=== PATIENT | male | born 1970 | race Caucasian/White ===

== ENCOUNTER 2017-06-24 10:36 | Day surgery (SDC) | payer BC ==
[2017-06-24 11:19] LABS: ADD MAN DIFF? NO
[2017-06-24 11:21] LABS: WHITE BLOOD COUNT 4.2 10^3/ul (4.8-10.8)
[2017-06-24 11:21] LABS: BASOPHILS % 0.7 % (0.0-2.0); EOSINOPHILS # 0.1 10^3/ul (0.0-0.5); EOSINOPHILS % 1.7 % (0.0-7.0); HEMATOCRIT 48.2 % (42.0-52.0); LYMPHOCYTES # 1.8 10^3/ul (0.8-2.9); LYMPHOCYTES % 42.8 % (15.0-51.0); MEAN CORPUSCULAR HGB CONC 35.3 g/dl (32.0-37.0); MEAN CORPUSCULAR VOLUME 85.2 fl (82.0-101.0); MEAN PLATELET VOLUME 9.8 fl (7.4-10.4); MONOCYTE # 0.4 10^3/ul (0.3-0.9); MONOCYTES % 8.7 % (0.0-11.0); NEUTROPHIL # 1.9 10^3/ul (1.6-7.5); NEUTROPHILS % 45.9 % (39.0-77.0); PLATELET COUNT 251 10^3/UL (140-415); RED BLOOD COUNT 5.66 10^6/ul (4.70-6.10); RED CELL DISTRIBUTION WIDTH 12.2 % (11.5-14.5)
[2017-06-24 11:26] LABS: HOLD TRANSMISSIONS 1
[2017-06-24 11:39] LABS: ALANINE AMINOTRANSFERASE 119 IU/L (13-69); ALBUMIN 4.6 g/dl (3.3-4.9); ALBUMIN/GLOBULIN RATIO 1.43; ALKALINE PHOSPHATASE 74 IU/L (42-121); ANION GAP 18 (8-16); ASPARTATE AMINO TRANSFERASE 102 IU/L (15-46); BILIRUBIN,INDIRECT 0.4 mg/dl (0-1.1); BILIRUBIN,TOTAL 0.4 mg/dl (0.2-1.3); CARBON DIOXIDE 25 mmol/L (21-31); CHLORIDE 106 mmol/L (97-110); GLUCOSE 96 mg/dl (70-220); TOTAL PROTEIN 7.8 g/dl (6.1-8.1)
[2017-06-24 11:41] LABS: BLOOD UREA NITROGEN 10 mg/dl (7-20); POTASSIUM 3.9 mmol/L (3.5-5.1); SODIUM 145 mmol/L (135-144)
[2017-06-24 11:42] LABS: CALCIUM 9.2 mg/dl (8.4-10.2); CREATININE 0.94 mg/dl (0.61-1.24)
[2017-06-24 11:44] LABS: INR 0.94; PROTIME 12.7 Sec (11.9-14.9)
[2017-06-24 11:45] LABS: PARTIAL THROMBOPLASTIN TIME 30.5 Sec (25.0-35.0)
[2017-06-24] MEDS ORDERED: CEFAZOLIN 1 GM/50 ML (PMX) 50 ML IVPB (12:00)
[2017-06-24] MEDS ORDERED: SOD CHLORIDE 0.9% 1,000 ML IV (12:00)
[2017-06-24] MEDS ORDERED: MIDAZOLAM 1 MG/ML 2 ML INJ (13:37)
[2017-06-24] MEDS ORDERED: METOCLOPRAMIDE 10 MG INJ (13:37)
[2017-06-24] MEDS ORDERED: PROPOFOL 20 ML (13:37)
[2017-06-24] MEDS ORDERED: ROPIVACAINE 0.5 % 30 ML VIAL (13:37)
[2017-06-24] MEDS: BUPIVACAINE 0.25% (MPF) 30 ML INJ (14:15)
[2017-06-24] MEDS ORDERED: ROCURONIUM 50 MG INJ (14:28)
[2017-06-24] MEDS ORDERED: KETOROLAC 30 MG INJ (14:28)
[2017-06-24] MEDS ORDERED: NEOSTIGMINE 3 MG/3 ML SYRINGE (14:28)
[2017-06-24] MEDS ORDERED: ONDANSETRON 4 MG INJ (14:28)
[2017-06-24] MEDS ORDERED: DIPHENHYDRAMINE 50 MG INJ IV (14:30)
[2017-06-24] MEDS ORDERED: HYDROmorphONE (0.2 MG/ML) 10ML SYG IV ×2 (14:30)
[2017-06-24] MEDS ORDERED: OXYCODONE/ACETAMINOPHEN (5/325) TAB PO ×2 (14:30)
[2017-06-24] MEDS ORDERED: ONDANSETRON 4 MG INJ IV (14:30)
[2017-06-24] MEDS ORDERED: GLYCOPYRROLATE 0.4 MG INJ (14:33)
[2017-06-24] MEDS ORDERED: HYDROCODONE/APAP (5/325) TAB PO (15:00)
[2017-06-24] MEDS: MEPERIDINE 25 MG INJ IV (15:46)
[2017-06-24] MEDS: HYDROmorphONE (0.2 MG/ML) 10ML SYG IV (15:47)
== END 2017-06-24 16:45 | disposition home or self-care (01) ==
LOC: SDS 10:36
DX: K43.0 Incisional hernia with obstruction, without gangrene (principal); K42.0 Umbilical hernia with obstruction, without gangrene
CPT/HCPCS: 49653; 80053; 85025; 85610; 85730